=== PATIENT | female | born 1940 | race Caucasian/White ===

== ENCOUNTER 2017-02-17 08:04 | Day surgery (SDC) | payer MEDICARE, OTHER ==
[~2017-02-17 08:04] MED LIST: APIX5TAB PO; ASPI81CH CHEW; BETA0.052 TOPICAL; CALC500T35 PO; DENO60P SQ; FAMO40TA PO; LATA.005%O EACH EYE; LOTR15T TOPICAL; METO50TA PO
[2017-02-17] MEDS ORDERED: SODIUM CHLORID 0.9% 500 ML IV PRN (09:00)
[2017-02-17] MEDS ORDERED: INSULIN HUMAN REGULAR 1,000 UNITS/10 ML VIAL SQ PRN (09:00)
[2017-02-17] MEDS ORDERED: METOPROLOL TARTRATE 25 MG TAB PO PRN (09:00)
[2017-02-17] MEDS ORDERED: CHLORHEXIDINE GLUCONATE 2 % 1 PACK (2 CLOTHS) TOPICAL PRN (09:00)
[2017-02-17] MEDS ORDERED: LACTATED RINGER'S 1000 ML IV PRN (09:00)
--- NOTE | 2017-02-17 21:41 | EKG ---
Date Performed: 02/17/2017 Time Performed: 08:56:20 PTAGE: 76 years EKG: Sinus rhythm with PAC(s) with 1st degree A-V block. PACs Abnormal ECG PREVIOUS TRACING : 11/08/2015 12.12 Compared to prior tracing no significant change DOCTOR: Dalton Dickens Interpretating Date/Time 02/17/2017 21:39:19
== END 2017-02-17 09:30 | disposition home or self-care (01) ==
LOC: HDOC 08:04 → HDIC 08:05 → HDOC 09:30
PROVIDERS: ATTEND Internal Medicine Interventional Cardiology
DX: I48.91 Unspecified atrial fibrillation (principal); Z53.9 Procedure and treatment not carried out, unspecified reason
CPT/HCPCS: 93005; G0463; 99211